=== PATIENT | female | born 1955 | race Caucasian/White ===

== ENCOUNTER 2025-03-24 23:29 | Inpatient (IN) | payer MEDICARE, OTHER ==
[~2025-03-24] VITALS: Ht 160 cm; Wt 68.5 kg
[2025-03-24 23:29] VITALS: BP 99/63
[2025-03-25 00:07] LABS: PLATELET COUNT (AUTO) 231 K/uL (179-408); RED BLOOD CELL COUNT(AUTO) 3.77 MIL/uL (3.63-4.92); RED CELL DISTRIBUTION WIDTH 13.8 % (12.3-17.7); WHITE BLOOD COUNT (AUTO) 9.1 K/uL (3.8-11.8)
[2025-03-25 00:23] LABS: ETHANOL < 3 MG/DL (0-10)
[2025-03-25 00:37] LABS: ASPARTATE AMINOTRANSFERASE 13 U/L (15-37); CREATININE 0.6 mg/dL (0.6-1.3); SODIUM SERUM 141 mmol/L (136-145); TOTAL PROTEIN, SERUM 6.8 g/dL (6.4-8.2); UREA NITROGEN, BLOOD 13 mg/dL (7-18)
[2025-03-25] MEDS ORDERED: FOLI0.4T6 PO (00:41)
[2025-03-25] MEDS ORDERED: ERGO500040 PO (00:41)
[2025-03-25] MEDS ORDERED: LACO50TA2 PO (00:41)
[2025-03-25] MEDS ORDERED: ACET650T10 PO (00:41)
[2025-03-25] MEDS ORDERED: MECL-159 PO (00:41)
[2025-03-25] MEDS ORDERED: LEVE750T56 PO (00:41)
[2025-03-25] MEDS ORDERED: POLY250017 PO (00:41)
[2025-03-25] MEDS ORDERED: OMEG1CAP55 PO (00:41)
[2025-03-25] MEDS ORDERED: DIVA125T2 PO (00:41)
[2025-03-25] MEDS ORDERED: ATOR20TA PO (00:41)
[2025-03-25] MEDS ORDERED: TRAZ-257 PO (00:41)
[2025-03-25] MEDS ORDERED: LACT10SO58 PO ×2 (00:41)
[2025-03-25] MEDS ORDERED: CYAN-51 PO (00:41)
[2025-03-25 04:15] VITALS: BP 156/90; TEMP 97.6; O2SAT 99
[2025-03-25] MEDS ORDERED: MAGNESIUM HYDROXIDE 30 ML LIQUID UDC PO PRN (04:15)
[2025-03-25] MEDS ORDERED: LORAZEPAM 1 MG TABLET PO PRN ×3 (04:15→09:00)
[2025-03-25] MEDS ORDERED: MAG HYDROX/AL HYDROX/SIMETH 30 ML LIQUID UDC PO PRN (04:15)
[2025-03-25] MEDS ORDERED: ZOLPIDEM 5 MG TABLET PO PRN (04:15)
[2025-03-25] MEDS: ERGOCALCIFEROL 50,000 UNIT CAPSULE PO SCH (06:15)
[2025-03-25] MEDS ORDERED: MECLIZINE HCL 25 MG TABLET PO PRN (06:15)
[2025-03-25 08:17] VITALS: BP 105/72; TEMP 98; O2SAT 96
[2025-03-25] MEDS ORDERED: LEVE750T10 PO (08:48)
[2025-03-25] MEDS ORDERED: FOLIC ACID 0.4 MG TABLET PO SCH (09:00)
[2025-03-25] MEDS: LACTULOSE 20 G/30 ML LIQUID UDC PO SCH (09:00)
[2025-03-25] MEDS: OLANZAPINE 2.5 MG TABLET PO SCH (09:00)
[2025-03-25] MEDS ORDERED: OMEGA ACID ETHYL ESTERS PO SCH (09:00)
[2025-03-25] MEDS: NICOTINE 14 MG/24HR PATCH TD SCH (09:00)
[2025-03-25] MEDS ORDERED: LACTULOSE PO SCH (09:00)
[2025-03-25] MEDS: DIVALPROEX 125 MG TABLET.DR PO SCH (09:00)
[2025-03-25] MEDS: CYANOCOBALAMIN 1,000 MCG TABLET PO SCH (09:03)
[2025-03-25] MEDS: LACOSAMIDE 50 MG TABLET PO SCH (09:04)
[2025-03-25] MEDS: FOLIC ACID 1 MG TABLET PO SCH (13:40)
[2025-03-25] MEDS ORDERED: DEXTROSE 50% 50 ML DISP.SYRIN IV PRN (17:00)
[2025-03-25] MEDS: BLOOD SUGAR DIAGNOSTIC 1 EACH STRIP VI SCH (21:00)
[2025-03-25] MEDS: ATORVASTATIN 20 MG TABLET PO SCH (21:00)
[2025-03-25] MEDS: TRAZODONE 50 MG TABLET PO SCH (21:00)
[2025-03-25 22:00] VITALS: BP 117/67; TEMP 98.1; O2SAT 96
[2025-03-26 07:55] LABS: CREATININE 0.5 mg/dL (0.6-1.3); SODIUM SERUM 143 mmol/L (136-145); TOTAL PROTEIN, SERUM 6.6 g/dL (6.4-8.2); UREA NITROGEN, BLOOD 7 mg/dL (7-18)
[2025-03-26 08:09] LABS: ASPARTATE AMINOTRANSFERASE < 5 U/L (15-37)
[2025-03-26 09:46] VITALS: BP 102/52; TEMP 98; O2SAT 96
[2025-03-26 15:38] VITALS: BP 106/66; TEMP 98; O2SAT 96
[2025-03-26 20:00] VITALS: BP 120/66; TEMP 97.4; O2SAT 96
[2025-03-27 08:22] VITALS: BP 107/71; TEMP 98; O2SAT 96
[2025-03-27 16:46] VITALS: BP 118/74; TEMP 98; O2SAT 96
[2025-03-27] MEDS: GLUCERNA SHAKE 237 ML CAN PO SCH (17:00)
[2025-03-27 20:00] VITALS: BP 114/85; TEMP 98.7; O2SAT 96
[2025-03-28] MEDS: ZOLPIDEM 5 MG TABLET PO PRN (01:30)
[2025-03-28 08:18] VITALS: BP 107/61; TEMP 98; O2SAT 96
[2025-03-28] MEDS: DIVALPROEX 125 MG TABLET.DR PO SCH (14:00)
[2025-03-28 20:05] VITALS: BP 132/82; TEMP 98.1; O2SAT 95
[2025-03-28] MEDS: TRAZODONE 50 MG TABLET PO SCH (20:20)
[2025-03-28] MEDS: OLANZAPINE 5 MG TABLET PO SCH (20:20)
[2025-03-28] MEDS: INSULIN REGULAR, HUMAN 1000 UNIT/10 ML VIAL SQ PRN (22:32)
[2025-03-29 09:00] VITALS: BP 122/61; TEMP 98.1; O2SAT 88
[2025-03-29] MEDS: OLANZAPINE 2.5 MG TABLET PO SCH (09:19)
[2025-03-29] MEDS: OLANZAPINE 10 MG VIAL IM STA (14:51)
[2025-03-29 16:22] VITALS: BP 127/68; TEMP 98; O2SAT 96
[2025-03-29 20:06] VITALS: BP 124/62; TEMP 98.1; O2SAT 96
[2025-03-29] MEDS: DIVALPROEX 250 MG TABLET.DR PO SCH (20:25)
[2025-03-29] MEDS ORDERED: DIVALPROEX 125 MG TABLET.DR PO SCH (21:00)
[2025-03-30] MEDS: OLANZAPINE 5 MG TABLET PO SCH (08:43)
[2025-03-30 08:44] VITALS: BP 131/59; TEMP 97.7; O2SAT 97
[2025-03-30] MEDS: ERGOCALCIFEROL 50,000 UNIT CAPSULE PO SCH (08:46)
[2025-03-30] MEDS ORDERED: OLANZAPINE 2.5 MG TABLET PO SCH (09:00)
[2025-03-30 15:55] VITALS: BP 95/58; TEMP 98.4; O2SAT 96
[2025-03-31] MEDS: ACETAMINOPHEN 325 MG TABLET PO PRN (13:30)
[2025-03-31 15:47] VITALS: BP 165/51; TEMP 98; O2SAT 96
[2025-03-31 20:00] VITALS: BP 115/69; TEMP 98.8; O2SAT 94
[2025-04-01 07:50] VITALS: BP 105/68; TEMP 98; O2SAT 98
[2025-04-01 15:49] VITALS: BP 92/53; TEMP 98; O2SAT 96
[2025-04-01 17:07] LABS: PLATELET COUNT (AUTO) 235 K/uL (179-408); RED BLOOD CELL COUNT(AUTO) 4.11 MIL/uL (3.63-4.92); RED CELL DISTRIBUTION WIDTH 14.6 % (12.3-17.7); WHITE BLOOD COUNT (AUTO) 7.2 K/uL (3.8-11.8)
[2025-04-01 17:18] LABS: CREATININE 0.6 mg/dL (0.6-1.3); SODIUM SERUM 143.0 mmol/L (136-145); UREA NITROGEN, BLOOD 13.0 mg/dL (7-18)
[2025-04-01 20:00] VITALS: BP 98/62; TEMP 98.3; O2SAT 97
[2025-04-01] MEDS: OLANZAPINE 5 MG TABLET PO SCH (21:20)
[2025-04-02 05:52] LABS: *BILIRUBIN,URIN NEGATIVE (NEGATIVE); *BLOOD, URINE 1+ (NEGATIVE); *CLARITY,URINE CLEAR (CLEAR); *COLOR,URINE YELLOW (YELLOW); *KETONES,URINE 2+ (NEGATIVE); *PROTEIN,URINE 1+ (NEGATIVE); *UROBILINOGEN,URINE 1.0 E.U./dl (NORMAL); LEUKOCYTE ESTERASE ,URINE 1+ (NEGATIVE); NITRITE, URINE POSITIVE (NEGATIVE); UGLUCOSE NEGATIVE (NEGATIVE)
[2025-04-02 05:55] LABS: SQUAMOUS EPITHELIAL CELL,UR MODERATE /HPF (NONE SEEN)
[2025-04-02 08:14] VITALS: BP 120/66; TEMP 98; O2SAT 99
[2025-04-02 15:34] VITALS: BP 106/64; TEMP 98; O2SAT 98
[2025-04-02 20:00] VITALS: BP 135/75; TEMP 98.1; O2SAT 98
[2025-04-03 08:18] VITALS: BP 119/67; TEMP 98; O2SAT 98
[2025-04-03 16:50] VITALS: BP 122/61; TEMP 98; O2SAT 98
[2025-04-03 21:14] VITALS: BP 110/62; TEMP 98.2; O2SAT 98
[2025-04-04 08:20] VITALS: BP 145/76; TEMP 98; O2SAT 98
[2025-04-04 13:45] LABS: PLATELET COUNT (AUTO) 207 K/uL (179-408); RED BLOOD CELL COUNT(AUTO) 4.10 MIL/uL (3.63-4.92); RED CELL DISTRIBUTION WIDTH 14.3 % (12.3-17.7); WHITE BLOOD COUNT (AUTO) 7.4 K/uL (3.8-11.8)
[2025-04-04 13:52] LABS: CREATININE 0.4 mg/dL (0.6-1.3); SODIUM SERUM 142 mmol/L (136-145); UREA NITROGEN, BLOOD 14 mg/dL (7-18)
[2025-04-04] MEDS ORDERED: DIVALPROEX 250 MG TABLET.DR PO SCH (14:00)
[2025-04-04] MEDS ORDERED: MEROPENEM 500 MG in IV NORMAL SALINE 50 ML IV SCH (14:00)
[2025-04-04] MEDS: DIVALPROEX 125 MG TABLET.DR PO SCH (14:00)
[2025-04-04 16:51] VITALS: BP 138/71; TEMP 98; O2SAT 98
[2025-04-04 20:00] VITALS: BP 109/65; TEMP 98.6; O2SAT 99
[2025-04-05] MEDS ORDERED: DIVA125T2 PO (09:14)
[2025-04-05] MEDS ORDERED: TRAZ-252 PO (09:14)
[2025-04-05] MEDS ORDERED: OLAN5TAB3 PO ×2 (09:14)
== END 2025-04-04 20:25 | disposition short-term general hospital (02) | DRG 885 ==
LOC: ER 23:37 → GPS 03-25 00:45
PROVIDERS: ADMIT Psychiatry & Neurology Psychiatry; ATTEND Nurse Practitioner Acute Care
DX: F29 Unspecified psychosis not due to a substance or known physiological condition (principal); N18.9 Chronic kidney disease, unspecified; Z16.12 Extended spectrum beta lactamase (ESBL) resistance; F02.83 Dementia in other diseases classified elsewhere, unspecified severity, with mood disturbance; F39 Unspecified mood [affective] disorder; F10.21 Alcohol dependence, in remission; G40.909 Epilepsy, unspecified, not intractable, without status epilepticus; E78.5 Hyperlipidemia, unspecified; B96.20 Unspecified Escherichia coli [E. coli] as the cause of diseases classified elsewhere; F17.210 Nicotine dependence, cigarettes, uncomplicated; Z71.6 Tobacco abuse counseling; N30.90 Cystitis, unspecified without hematuria; Z79.899 Other long term (current) drug therapy; Z86.73 Personal history of transient ischemic attack (TIA), and cerebral infarction without residual deficits; Z88.2 Allergy status to sulfonamides; Z88.5 Allergy status to narcotic agent; I12.9 Hypertensive chronic kidney disease with stage 1 through stage 4 chronic kidney disease, or unspecified chronic kidney disease; E11.22 Type 2 diabetes mellitus with diabetic chronic kidney disease; G30.9 Alzheimer's disease, unspecified; F32.A Depression, unspecified
CPT/HCPCS: 36415; 80164; 85025; 87077; 87086; A4606; A4663; G0480; J1815; J2358; J3490; J8597

== ENCOUNTER 2025-04-04 20:37 | Inpatient (IN) | payer MEDICARE, OTHER ==
[~2025-04-04] VITALS: Ht 160 cm; Wt 62.4 kg
[~2025-04-04 20:37] MED LIST: ACET650T10 PO; ATOR20TA PO; CYAN-51 PO; ERGO500040 PO; FOLI0.4T6 PO; LACO50TA2 PO; LACT10SO58 PO; LEVE750T10 PO; MECL-159 PO; OMEG1CAP55 PO; POLY250017 PO
[2025-04-04 21:00] VITALS: BP 127/82; TEMP 98.3; O2SAT 99
[2025-04-04] MEDS ORDERED: MAGNESIUM HYDROXIDE 30 ML LIQUID UDC PO PRN (22:15)
[2025-04-04] MEDS ORDERED: REMEDY ESSENTIAL ZINC PASTE 113 GM TP PRN (22:15)
[2025-04-04] MEDS ORDERED: ONDANSETRON 4 MG/2 ML VIAL IV PRN (22:15)
[2025-04-04] MEDS: ZOLPIDEM 5 MG TABLET PO PRN (23:30)
[2025-04-04] MEDS ORDERED: MEROPENEM 500MG/NS 50ML PB ***ER PYXIS ONLY IV ONE (23:41)
[2025-04-04] MEDS: MEROPENEM 500 MG in IV NORMAL SALINE 50 ML IV ONE (23:57)
[2025-04-05 05:00] VITALS: BP 109/71; TEMP 97.9; O2SAT 96
[2025-04-05 06:41] LABS: PLATELET COUNT (AUTO) 212 K/uL (179-408); RED BLOOD CELL COUNT(AUTO) 4.00 MIL/uL (3.63-4.92); RED CELL DISTRIBUTION WIDTH 14.0 % (12.3-17.7); WHITE BLOOD COUNT (AUTO) 6.8 K/uL (3.8-11.8)
[2025-04-05 07:01] LABS: CREATININE 0.5 mg/dL (0.6-1.3); SODIUM SERUM 142.0 mmol/L (136-145); UREA NITROGEN, BLOOD 12.0 mg/dL (7-18)
[2025-04-05 07:30] VITALS: BP 114/75; TEMP 97.4; O2SAT 99
[2025-04-05] MEDS: CYANOCOBALAMIN 1,000 MCG TABLET PO SCH (08:30)
[2025-04-05] MEDS: LACOSAMIDE 50 MG TABLET PO SCH (08:30)
[2025-04-05] MEDS: MIRALAX 17 GM POWD.PACK PO SCH (08:36)
[2025-04-05] MEDS: MEROPENEM 500 MG in IV NORMAL SALINE 50 ML IV SCH (08:39)
[2025-04-05] MEDS ORDERED: OMEGA-3 FATTY ACIDS/FISH OIL CAPSULE PO SCH (09:00)
[2025-04-05] MEDS: LACTULOSE 20 G/30 ML LIQUID UDC PO SCH (09:00)
[2025-04-05] MEDS ORDERED: LACTULOSE PO SCH (09:00)
[2025-04-05] MEDS ORDERED: FOLIC ACID 0.4 MG TABLET PO SCH ×2 (09:00)
[2025-04-05] MEDS ORDERED: TRAZ-252 PO (09:14)
[2025-04-05] MEDS ORDERED: DIVA125T2 PO (09:14)
[2025-04-05] MEDS ORDERED: OLAN5TAB3 PO ×2 (09:14)
[2025-04-05] MEDS: OLANZAPINE ZYDIS 5 MG TAB.RAPDIS PO SCH ×2 (10:37→21:52)
[2025-04-05] MEDS: OMEGA-3 FATTY ACIDS/FISH OIL CAPSULE PO SCH (10:37)
[2025-04-05] MEDS: DIVALPROEX 125 MG TABLET.DR PO SCH (13:58)
[2025-04-05 16:30] VITALS: BP 95/57; TEMP 98.7; O2SAT 95
[2025-04-05 19:00] VITALS: BP 118/62; TEMP 97.4; O2SAT 94
[2025-04-05] MEDS: ATORVASTATIN 20 MG TABLET PO SCH (21:52)
[2025-04-05] MEDS: TRAZODONE 50 MG TABLET PO SCH (21:54)
[2025-04-06] VITALS: BP 100/58; TEMP 97.5; O2SAT 95
[2025-04-06 04:00] VITALS: BP 107/69; TEMP 97.3; O2SAT 95
[2025-04-06 08:00] VITALS: BP 106/67; TEMP 98.7; O2SAT 96
[2025-04-06] MEDS: ERGOCALCIFEROL 50,000 UNIT CAPSULE PO SCH (08:13)
[2025-04-06] MEDS: FOLIC ACID 1 MG TABLET PO SCH (08:14)
[2025-04-06] MEDS: ACETAMINOPHEN 325 MG TABLET PO PRN (09:21)
[2025-04-06 15:11] VITALS: BP 101/65; TEMP 97.6; O2SAT 97
[2025-04-06 19:32] VITALS: BP 107/68; TEMP 97.9; O2SAT 98
[2025-04-07 06:00] VITALS: BP 113/63; TEMP 97.8; O2SAT 96
[2025-04-07 08:00] VITALS: BP 134/77; TEMP 98.6; O2SAT 96
[2025-04-07] MEDS: OLANZAPINE 10 MG VIAL IM ONE (11:26)
[2025-04-07 16:27] VITALS: BP 127/69; TEMP 97.4; O2SAT 97
[2025-04-07 20:10] VITALS: BP 114/60; TEMP 98.3; O2SAT 92
[2025-04-07] MEDS: OLANZAPINE ZYDIS 5 MG TAB.RAPDIS PO SCH (20:32)
[2025-04-08] MEDS ORDERED: LORAZEPAM 2 MG/1 ML VIAL IV ONE (03:45)
[2025-04-08 06:38] VITALS: BP 140/70; TEMP 97.7; O2SAT 95
[2025-04-08 12:00] VITALS: BP 123/79; TEMP 98.6; O2SAT 95
[2025-04-08] MEDS: GLUCERNA SHAKE 237 ML CAN PO SCH (12:16)
[2025-04-08] MEDS: OLANZAPINE ZYDIS 5 MG TAB.RAPDIS PO SCH (13:28)
[2025-04-08] MEDS: DIVALPROEX 500 MG TABLET.DR PO SCH (13:28)
[2025-04-08] MEDS ORDERED: DIVALPROEX 125 MG TABLET.DR PO SCH (14:00)
[2025-04-08 16:12] VITALS: BP 122/71; TEMP 98.2; O2SAT 96
[2025-04-08 20:30] VITALS: BP 136/72; TEMP 97.5; O2SAT 96
[2025-04-09 06:00] VITALS: BP 123/67; TEMP 98.1; O2SAT 96
[2025-04-09 12:00] VITALS: BP 114/72; TEMP 97.9; O2SAT 96
[2025-04-09 16:00] VITALS: BP 106/70; TEMP 98; O2SAT 96
[2025-04-09 20:26] VITALS: BP 111/58; TEMP 97.3; O2SAT 95
[2025-04-10 06:04] VITALS: BP 121/61; TEMP 97.5
[2025-04-10 08:03] VITALS: BP 97/60; TEMP 97.7; O2SAT 98
[2025-04-10 15:38] VITALS: BP 95/55; TEMP 97.6
[2025-04-10 20:00] VITALS: BP 105/69; TEMP 98.7; O2SAT 95
[2025-04-11 06:40] VITALS: BP 123/73; TEMP 98.3; O2SAT 100
[2025-04-11 12:11] VITALS: BP 111/75; TEMP 98.4; O2SAT 96
[2025-04-11 15:34] VITALS: BP 135/77; TEMP 98.4; O2SAT 97
[2025-04-11 20:00] VITALS: BP 128/81; TEMP 98.1; O2SAT 96
[2025-04-12] MEDS ORDERED: MEROPENEM 500 MG in IV NORMAL SALINE 50 ML IV SCH (08:00)
[2025-04-12] MEDS ORDERED: FOLI1TAB94 PO (12:00)
== END 2025-04-11 19:30 | DRG 690 ==
LOC: MEDSURG3 20:37 → GPSOV3 04-11 14:11 → GPS 04-11 19:49
PROVIDERS: ADMIT Student in an Organized Health Care Education/Training Program
DX: N39.0 Urinary tract infection, site not specified (principal); Z16.12 Extended spectrum beta lactamase (ESBL) resistance; F03.93 Unspecified dementia, unspecified severity, with mood disturbance; F03.92 Unspecified dementia, unspecified severity, with psychotic disturbance; B96.20 Unspecified Escherichia coli [E. coli] as the cause of diseases classified elsewhere; G40.909 Epilepsy, unspecified, not intractable, without status epilepticus; F17.210 Nicotine dependence, cigarettes, uncomplicated; F10.21 Alcohol dependence, in remission; Z88.2 Allergy status to sulfonamides; Z88.5 Allergy status to narcotic agent; E11.9 Type 2 diabetes mellitus without complications; Z86.73 Personal history of transient ischemic attack (TIA), and cerebral infarction without residual deficits; Z91.410 Personal history of adult physical and sexual abuse; R53.1 Weakness
CPT/HCPCS: 36415; 70450; 80164; 83735; 83921; 84100; 84443; 85025; A4663; G0378; J2185; J2358

== ENCOUNTER 2025-04-11 20:00 | Inpatient (IN) | payer MEDICARE, OTHER ==
[~2025-04-11 20:00] MED LIST changes: +DIVA125T2 PO; +OLAN5TAB3 PO; +TRAZ-252 PO
[2025-04-12] MEDS ORDERED: ZOLPIDEM 5 MG TABLET PO PRN (00:45)
[2025-04-12] MEDS: BLOOD SUGAR DIAGNOSTIC 1 EACH STRIP VI ONE (00:45)
[2025-04-12] MEDS ORDERED: MAGNESIUM HYDROXIDE 30 ML LIQUID UDC PO PRN (00:45)
[2025-04-12 08:10] VITALS: BP 119/69; TEMP 98.3; O2SAT 96
[2025-04-12] MEDS ORDERED: BRIMONIDINE-P 0.1% OPHTH DROP 5 ML DROPS EACHEYE SCH (11:45)
[2025-04-12] MEDS ORDERED: FOLI1TAB94 PO (12:00)
[2025-04-12] MEDS ORDERED: MECLIZINE HCL 25 MG TABLET PO PRN (12:15)
[2025-04-12] MEDS: LACOSAMIDE 50 MG TABLET PO SCH (12:18)
[2025-04-12] MEDS: LACTULOSE 20 G/30 ML LIQUID UDC PO SCH (16:35)
[2025-04-12] MEDS: GLUCERNA SHAKE 237 ML CAN PO SCH (16:36)
[2025-04-12 16:56] VITALS: BP 119/69; TEMP 98.3; O2SAT 96
[2025-04-12] MEDS ORDERED: LACTULOSE PO SCH (17:00)
[2025-04-12 20:00] VITALS: BP 119/68; TEMP 97.4; O2SAT 99
[2025-04-12] MEDS: ATORVASTATIN 20 MG TABLET PO SCH (20:21)
[2025-04-12] MEDS: ZOLPIDEM 5 MG TABLET PO PRN (22:47)
[2025-04-13 08:00] VITALS: BP 112/72; TEMP 98.2; O2SAT 98
[2025-04-13] MEDS: ERGOCALCIFEROL 50,000 UNIT CAPSULE PO SCH (08:31)
[2025-04-13] MEDS: CYANOCOBALAMIN 1,000 MCG TABLET PO SCH (08:32)
[2025-04-13] MEDS: MIRALAX 17 GM POWD.PACK PO SCH (08:32)
[2025-04-13] MEDS: FOLIC ACID 1 MG TABLET PO SCH (08:32)
[2025-04-13] MEDS ORDERED: Medication Not On Formulary EA (Polyethylene Glycol 3350 17 GM) PO SCH (09:00)
[2025-04-13] MEDS ORDERED: DIVALPROEX 125 MG TABLET.DR PO SCH (14:00)
[2025-04-13] MEDS: OLANZAPINE ZYDIS 5 MG TAB.RAPDIS PO SCH ×2 (14:17→21:01)
[2025-04-13] MEDS: DIVALPROEX 500 MG TABLET.DR PO SCH (14:22)
[2025-04-13 16:00] VITALS: BP 101/68; TEMP 98.2; O2SAT 99
[2025-04-13 20:26] VITALS: BP 110/66; TEMP 98.1; O2SAT 98
[2025-04-13] MEDS: ACETAMINOPHEN 325 MG TABLET PO PRN (23:03)
[2025-04-14 20:02] VITALS: BP 121/73; TEMP 98.1; O2SAT 96
[2025-04-15 08:00] VITALS: BP 142/92; TEMP 98; O2SAT 99
[2025-04-15 15:13] VITALS: BP 139/93; TEMP 98; O2SAT 99
[2025-04-15 19:53] VITALS: BP 99/61; TEMP 98; O2SAT 96
[2025-04-15] MEDS: TRAZODONE 50 MG TABLET PO SCH (21:16)
[2025-04-16] MEDS: QUETIAPINE FUMARATE 25 MG TABLET PO PRN (00:40)
[2025-04-16 07:44] VITALS: BP 127/74; TEMP 98; O2SAT 100
[2025-04-16 16:24] VITALS: BP 106/67; TEMP 98.4; O2SAT 97
[2025-04-16 19:50] VITALS: BP 125/75; TEMP 98.3; O2SAT 97
[2025-04-17 07:37] LABS: PLATELET COUNT (AUTO) 215 K/uL (179-408); RED BLOOD CELL COUNT(AUTO) 3.64 MIL/uL (3.63-4.92); RED CELL DISTRIBUTION WIDTH 14.3 % (12.3-17.7); WHITE BLOOD COUNT (AUTO) 5.8 K/uL (3.8-11.8)
[2025-04-17 07:59] LABS: ASPARTATE AMINOTRANSFERASE 5 U/L (15-37); CREATININE 0.4 mg/dL (0.6-1.3); SODIUM SERUM 142 mmol/L (136-145); TOTAL PROTEIN, SERUM 6.2 g/dL (6.4-8.2); UREA NITROGEN, BLOOD 10 mg/dL (7-18); VALPROIC ACID 39 ug/mL (50-100)
[2025-04-17 08:41] VITALS: BP 148/81; TEMP 98.4; O2SAT 97
[2025-04-17 16:22] VITALS: BP 144/78; TEMP 98.4; O2SAT 97
[2025-04-17 19:51] VITALS: BP 142/76; TEMP 98.2; O2SAT 96
[2025-04-17] MEDS: MAG HYDROX/AL HYDROX/SIMETH 30 ML LIQUID UDC PO PRN (20:16)
[2025-04-18 08:51] VITALS: BP 102/61; TEMP 98.4; O2SAT 97
[2025-04-18] MEDS: DIVALPROEX 125 MG TABLET.DR PO SCH (13:17)
[2025-04-18] MEDS: DIVALPROEX 500 MG TABLET.DR PO SCH (13:18)
[2025-04-18] MEDS ORDERED: DIVALPROEX 500 MG TABLET.DR PO SCH (14:00)
[2025-04-18 16:32] VITALS: BP 96/51; TEMP 98.4; O2SAT 97
[2025-04-18 19:38] VITALS: BP 101/54; TEMP 98.1; O2SAT 96
[2025-04-19 08:48] VITALS: BP 127/58; TEMP 98.4; O2SAT 97
[2025-04-19 16:45] VITALS: BP 131/53; TEMP 98.4; O2SAT 97
[2025-04-19 19:56] VITALS: BP 119/64; TEMP 98; O2SAT 95
[2025-04-20 08:00] VITALS: BP 107/63; TEMP 97.2; O2SAT 97
== END 2025-04-20 12:45 | DRG 885 ==
LOC: GPS 20:00
PROVIDERS: ADMIT Psychiatry & Neurology Psychiatry; ATTEND Internal Medicine
DX: F25.9 Schizoaffective disorder, unspecified (principal); D68.59 Other primary thrombophilia; R45.851 Suicidal ideations; F31.9 Bipolar disorder, unspecified; F10.21 Alcohol dependence, in remission; R41.89 Other symptoms and signs involving cognitive functions and awareness; Z87.891 Personal history of nicotine dependence; D75.89 Other specified diseases of blood and blood-forming organs; E78.5 Hyperlipidemia, unspecified; Z74.09 Other reduced mobility; I10 Essential (primary) hypertension; Z87.440 Personal history of urinary (tract) infections; Z98.890 Other specified postprocedural states; Z79.899 Other long term (current) drug therapy; Z86.73 Personal history of transient ischemic attack (TIA), and cerebral infarction without residual deficits; Z91.81 History of falling; R26.81 Unsteadiness on feet; F41.9 Anxiety disorder, unspecified; Z88.2 Allergy status to sulfonamides; Z88.5 Allergy status to narcotic agent; G40.909 Epilepsy, unspecified, not intractable, without status epilepticus; G93.89 Other specified disorders of brain; Z86.39 Personal history of other endocrine, nutritional and metabolic disease; M15.9 Polyosteoarthritis, unspecified
CPT/HCPCS: 36415; 72170; 80164; 85025; J8597